=== PATIENT | female | born 1975 | race Caucasian/White ===

== ENCOUNTER 2019-08-25 07:34 | Emergency (ER) | payer OTHER ==
[~2019-08-25] VITALS: Ht 170.2 cm; Wt 77.1 kg
[~2019-08-25 07:34] MED LIST: AMOXICILLIN 50500 MG PO; ANTIVERT25 MG PO; APAP500; APAP500 PO; AUGMENTIN 875875 MG PO; CEPHALEXIN 500500 M3 PO; CEREFOLIN TABL1 EAC1 PO; CIPRO500 MG PO; CIPROFLOXACIN500 M1 PO; DIAZEPAM 2MG TAB2 MG OR; DIFLUCAN150 MG PO; DOXYCYCLINE 10100 MG PO; FLAGYL500 MG PO; FLEXERIL PO; HYDROCODON-ACE1 EAC7 PO; HYDROCODONE-AP1 EAC6 PO; HYDROXYZINE HCL50 MG; IBUPROFEN 200200 M1 PO; IBUPROFEN 800800 M1 PO; KEFLEX500 MG PO; MUCINEX TA600 MG/TA2 PO; NAPROSYN500 MG PO; NASONEX17 GM NASAL; ONDANSETRON HCL4 M2 PO; PENICILLIN V P500 MG PO; PENICILLIN VK500 M1 PO; TRAMADOL 50 MG50 MG PO; ULTRACET TABLET1 TAB PO; ULTRAM 50MG TAB50 MG PO; VALTREX 500 MG500 M1 PO; ZANTAC 150MG T150 M1; ZOFRAN ODT4 MG PO; ZYRTEC10 M5 PO
[2019-08-25 07:45] VITALS: BP 132/79
[2019-08-25 08:28] LABS: INFLUENZA A ANTIGEN Negative (Negative); INFLUENZA B ANTIGEN Negative (Negative)
[2019-08-25] MEDS ORDERED: AMOXICILLIN875 MG PO (08:37)
[2019-08-25] MEDS ORDERED: PROMETHAZINE-C473 ML PO (08:37)
== END 2019-08-25 08:55 | disposition home or self-care (01) ==
LOC: M.ERS 07:34
PROVIDERS: Personal Emergency Response Attendant
DX: J06.9 Acute upper respiratory infection, unspecified (principal); K21.9 Gastro-esophageal reflux disease without esophagitis; F17.210 Nicotine dependence, cigarettes, uncomplicated; Z88.1 Allergy status to other antibiotic agents; Z88.2 Allergy status to sulfonamides